=== PATIENT | male | born 1975 | race Caucasian/White ===

== ENCOUNTER → 2021-08-03 | Outpatient (CLI) | payer BC ==
--- NOTE | 2021-08-03 15:35 | EST ---
EXERCISE STRESS AGE: 46 SEX: M HT: 6'4" WT: 195 lbs. PROTOCOL: Erik STAGE: 5 DURATION OF EXERCISE: 13:23 HEART RATE REST: 67 BLOOD PRESSURE REST: 122/79 MAXIMUM HEART RATE ACHIEVED: 184 MAXIMUM BLOOD PRESSURE: 169/76 85% MPHR: 148 100% MPHR: 174 METS: 14.5 INDICATIONS: Family history heart disease CLINICAL INFORMATION: Baseline rhythm is sinus mechanism, rate 67, borderline right axis deviation, normal intervals. Baseline blood pressure 122/79 mmHg. Patient exercised on Erik protocol for 13 minutes 23 seconds, reaching peak rate of 184 beats per minute, which is above his 100% maximum predicted heart rate. Peak blood pressure 169/78 mmHg. Test was terminated secondary to fatigue. There was no chest pain. Electrocardiograph monitoring revealed rare single PVCs. There was no evidence of diagnostic ischemic ST deviation. CONCLUSION: 1. Excellent exercise tolerance with rare single PVCs. 2. Normal electrocardiographic stress testing with no evidence of stress-induced ischemia. MMODL / IJN: [id number] /
== END | disposition home or self-care (01) ==
LOC: RADNMMAIN 08:40
PROVIDERS: ATTEND Family Medicine
DX: I49.3 Ventricular premature depolarization (principal); Z82.49 Family history of ischemic heart disease and other diseases of the circulatory system
CPT/HCPCS: 93017